=== PATIENT | female | born 1995 | race Asian ===

== ENCOUNTER 2018-01-13 01:30 | Emergency (ER) | payer BC ==
[2018-01-13 02:19] LABS: BILIRUBIN,URINE NEGATIVE (NEG); CLARITY,URINE CLEAR; COLOR,URINE YELLOW; GLUCOSE,URINE NEGATIVE (NEG); NITRITE,URINE NEGATIVE (NEG); PROTEIN,URINE NEGATIVE (NEG-TRACE)
[2018-01-13 02:23] LABS: BACTERIA,URINE MANY /HPF (0-FEW); WBC,URINE >40 /HPF (0-4)
[2018-01-13 02:25] LABS: SQUAMOUS EPITHELIAL CELL,UR MOD /LPF; YEAST,URINE PRESENT /HPF
[2018-01-13] MEDS: AMOXICILLIN 250 MG CAPSULE. PO (02:51)
== END 2018-01-13 02:57 | disposition home or self-care (01) ==
LOC: ER 01:30
DX: O23.11 Infections of bladder in pregnancy, first trimester (principal); Z3A.15 15 weeks gestation of pregnancy
CPT/HCPCS: 76815; 81001; 87086; 99285-25

== ENCOUNTER 2018-01-15 12:11 | Emergency (ER) | payer BC | END 2018-01-15 14:19 | disposition home or self-care (01) | LOC: ER 12:11 | DX: O26.891 Other specified pregnancy related conditions, first trimester (principal); D17.21 Benign lipomatous neoplasm of skin and subcutaneous tissue of right arm; Z3A.00 Weeks of gestation of pregnancy not specified | CPT/HCPCS: 76882; 99284-25 ==